=== PATIENT | female | born 1995 | race Caucasian/White ===

== ENCOUNTER 2020-05-11 07:27 | Outpatient (REF) | payer BC, SELFPAY | END 2020-05-11 07:28 | disposition home or self-care (01) | LOC: HO.LAB 07:27 | PROVIDERS: PCP Internal Medicine; Visit Provider Internal Medicine | DX: Z20.828 Contact with and (suspected) exposure to other viral communicable diseases (principal) | CPT/HCPCS: C9803; U0003 ==

== ENCOUNTER → 2023-02-03 09:52 | Outpatient (BNVA) | payer SELFPAY | PROVIDERS: PCP Internal Medicine | DX: Z02.83 Encounter for blood-alcohol and blood-drug test (principal) ==

== ENCOUNTER → 2024-01-19 09:56 | Outpatient (BNVA) | payer SELFPAY | PROVIDERS: PCP Internal Medicine | DX: Z02.83 Encounter for blood-alcohol and blood-drug test (principal) ==